=== PATIENT | male | born 1955 | race Caucasian/White ===

== ENCOUNTER 2020-10-18 12:26 | Inpatient (IN) | payer MEDICARE, BC ==
[~2020-10-18] VITALS: Ht 175.3 cm; Wt 65.0 kg
[2020-10-18] MEDS ORDERED: dexamethasone sod phosphate 10mg/ml inj IV STA (14:06)
[2020-10-18 14:33] LABS: BASOPHILS % (AUTO) 0.1 % (0-1); EOSINOPHILS % (AUTO) 0 % (0-6); HEMATOCRIT 48.1 % (42.0-52.0); HEMOGLOBIN 15.9 g/dl (14.0-17.9); LYMPHOCYTES # (AUTO) 0.6 X10'3 (1.1-4.8); LYMPHOCYTES % (AUTO) 4.4 % (21-51); MEAN CORPUSCULAR HEMOGLOBIN 31.3 PG (27.0-31.0); MEAN CORPUSCULAR HGB CONC 33.1 g/dL (33.0-36.5); MEAN CORPUSCULAR VOLUME 94.6 FL (78-98); MONOCYTES # (AUTO) 0.5 X10'3 (0-0.9); MONOCYTES % (AUTO) 3.8 % (2-12); NEUTROPHILS # (AUTO) 12.1 X10'3 (1.8-7.7); NEUTROPHILS % (AUTO) 91.7 % (42-75); PLATELET COUNT 353 X10'3 (140-440); RED BLOOD COUNT 5.08 X10'6 (4.70-6.10); RED CELL DISTRIBUTION WIDTH 13.2 % (11.5-14.5); WHITE BLOOD COUNT 13.2 X10'3 (4.5-11.0)
[2020-10-18 14:50] LABS: D-DIMER 13.88 MG/L FEU (0-0.50)
[2020-10-18 14:51] LABS: ALANINE AMINOTRANSFERASE 77 U/L (12-78); ALBUMIN 2.7 G/DL (3.4-5.0); ALBUMIN/GLOBULIN RATIO 0.5 (1.1-1.5); ALKALINE PHOSPHATASE 97 IU/L (46-116); ANION GAP 12 (8-16); ASPARTATE AMINO TRANSFERASE 23 U/L (10-37); BILIRUBIN,TOTAL 0.6 MG/DL (0.1-1.0); BLOOD UREA NITROGEN 19 MG/DL (7-18); BUN/CREATININE RATIO 24.1 (5.4-32.0); C-REACTIVE PROTEIN 11.24 MG/DL (0.0-0.5); CALCIUM 9.1 MG/DL (8.5-10.1); CHLORIDE 103 MMOL/L (99-107); CREATININE 0.79 MG/DL (0.60-1.10); GLUCOSE 139 MG/DL (70-104); MAGNESIUM 2.3 MG/DL (1.5-2.4); POTASSIUM 4.1 MMOL/L (3.5-5.1); SODIUM 139 MMOL/L (135-145); TOTAL CARBON DIOXIDE 23.7 MMOL/L (24-32); eGFR > 90 ML/MIN
[2020-10-18] MEDS ORDERED: enoxaparin 100mg/ml syringe SUBCUT ONE (15:20)
[2020-10-18] MEDS ORDERED: enoxaparin 40mg/0.4ml syringe SUBCUT ONE (15:25)
[2020-10-18] MEDS ORDERED: enoxaparin 30mg/0.3ml syringe SUBCUT ONE (15:30)
[2020-10-18] MEDS ORDERED: iohexol 350MG/ML 100ml bottle IV ONE (15:45)
[2020-10-18] MEDS ORDERED: REMDESIVIR INJ 200 MG in normal saline 100ml IV soln 60 ML IV ONE (16:50)
[2020-10-18] MEDS ORDERED: acetaminophen 325mg tablet PO PRN ×2 (17:05)
[2020-10-18] MEDS ORDERED: HYDROcodone/acetaminophen 5mg/325mg tablet PO PRN (17:05)
[2020-10-18] MEDS ORDERED: mag hydrox/Alum hydrox/simeth 30ml oral suspension PO PRN (17:05)
[2020-10-18] MEDS ORDERED: ALBUTEROL INHALER 1 PUFF/90 MCG INHALER IH PRN (17:05)
[2020-10-18] MEDS ORDERED: ondansetron/PF 4mg/2ml inj IV PRN (17:05)
[2020-10-18] MEDS ORDERED: HYDROcodone/acetaminophen 10/325mg tab PO PRN (17:05)
[2020-10-18] MEDS ORDERED: magnesium hydroxide 30ml (MOM) UD suspension PO PRN (17:05)
[2020-10-18] MEDS ORDERED: magnesium 2GM in 50ml NS 50 ML IV PRN (17:05)
[2020-10-18] MEDS ORDERED: magnesium 4gm in 100ml NS 100 ML IV PRN (17:05)
[2020-10-18] MEDS ORDERED: potassium Cl 20 mEq SR tablet PO PRN ×2 (17:05)
[2020-10-18] MEDS ORDERED: potassium Cl 40MEQ/1/2NS 520ml 520 ML IV PRN ×2 (17:05)
[2020-10-18] MEDS ORDERED: PRED20TA PO (17:30)
[2020-10-18] MEDS ORDERED: VALA500T41 PO (17:30)
[2020-10-18] MEDS ORDERED: DOXY100T2 PO (17:30)
[2020-10-18] MEDS: normal saline 1000ml 1,000 ML IV SCH (19:10)
[2020-10-18] MEDS: docusate sod 100mg capsule PO SCH (19:11)
[2020-10-18] MEDS: dexamethasone 4mg/ml inj IV SCH (19:11)
[2020-10-18] MEDS: K and/or MAG REPLACEMENT MC SCH (19:11)
[2020-10-18] MEDS: enoxaparin 30mg/0.3ml syringe SQ SCH (19:12)
[2020-10-18 19:51] LABS: CLARITY,URINE CLEAR (Clear); COLOR,URINE YELLOW (Yellow); GLUCOSE, URINE NEGATIVE (Neg); KETONES,URINE NEGATIVE (Neg); LEUKOCYTE ESTERASE ,URINE NEGATIVE (Neg); NITRITES, URINE NEGATIVE (Neg); OCCULT BLOOD,URINE NEGATIVE (Neg); PH,URINE 6.5 (4.8-8.0); PROTEIN,URINE TRACE mg/dl (Neg); UROBILINOGEN,URINE 0.2 E.U/dL (0.2-1.0)
[2020-10-18 19:52] LABS: UA COLLECTION TYPE URINAL
[2020-10-18 20:01] LABS: BACTERIA,URINE NONE SEEN /HPF (Neg); MUCUS STRANDS FEW /LPF (Neg); RBC,URINE 0-2 /HPF (0-2); SQUAMOUS EPITHELIAL CELL,UR FEW /LPF (FEW); WBC,URINE 0-4 /HPF (0-4)
[2020-10-18 20:02] LABS: CAL OXALATE CRYSTALS 1+ /HPF (NEGATIVE)
--- NOTE | 2020-10-18 20:13 | NUR ---
patient recieved late dinner tray
--- NOTE | 2020-10-19 03:15 | NUR ---
300ml yellow urine output
[2020-10-19] MEDS: normal saline 1000ml 1,000 ML IV SCH ×3 (03:30→17:28)
[2020-10-19] MEDS ORDERED: NO HOME MEDS PO (05:32)
[2020-10-19 07:40] VITALS: BP 158/94
[2020-10-19] MEDS: docusate sod 100mg capsule PO SCH ×2 (08:00→20:46)
[2020-10-19] MEDS: K and/or MAG REPLACEMENT MC SCH ×2 (08:00→20:00)
[2020-10-19] MEDS: dexamethasone 4mg/ml inj IV SCH ×2 (09:38→20:45)
[2020-10-19] MEDS: enoxaparin 30mg/0.3ml syringe SQ SCH ×2 (09:45→20:46)
[2020-10-19 10:00] VITALS: BP 158/93
[2020-10-19] MEDS: REMDESIVIR INJ 100 MG in normal saline 100ml IV soln 80 ML IV SCH (10:17)
[2020-10-19 11:07] LABS: BASOPHILS # (AUTO) 0.1 X10'3 (0-0.2); BASOPHILS % (AUTO) 0.5 % (0-1); EOSINOPHILS % (AUTO) 0 % (0-6); HEMATOCRIT 44.5 % (42.0-52.0); HEMOGLOBIN 14.8 g/dl (14.0-17.9); LYMPHOCYTES # (AUTO) 0.8 X10'3 (1.1-4.8); LYMPHOCYTES % (AUTO) 5.3 % (21-51); MEAN CORPUSCULAR HEMOGLOBIN 31.4 PG (27.0-31.0); MEAN CORPUSCULAR HGB CONC 33.2 g/dL (33.0-36.5); MEAN CORPUSCULAR VOLUME 94.4 FL (78-98); MEAN PLATELET VOLUME 7.9 FL (7.4-10.4); MONOCYTES # (AUTO) 0.7 X10'3 (0-0.9); MONOCYTES % (AUTO) 4.3 % (2-12); NEUTROPHILS # (AUTO) 13.8 X10'3 (1.8-7.7); NEUTROPHILS % (AUTO) 89.9 % (42-75); PLATELET COUNT 330 X10'3 (140-440); RED BLOOD COUNT 4.72 X10'6 (4.70-6.10); RED CELL DISTRIBUTION WIDTH 13.3 % (11.5-14.5); WHITE BLOOD COUNT 15.3 X10'3 (4.5-11.0)
[2020-10-19 11:15] LABS: ALANINE AMINOTRANSFERASE 52 U/L (12-78); ALBUMIN 2.2 G/DL (3.4-5.0); ALBUMIN/GLOBULIN RATIO 0.4 (1.1-1.5); ALKALINE PHOSPHATASE 84 IU/L (46-116); ANION GAP 11 (8-16); ASPARTATE AMINO TRANSFERASE 9 U/L (10-37); BILIRUBIN,TOTAL 0.4 MG/DL (0.1-1.0); BLOOD UREA NITROGEN 19 MG/DL (7-18); BUN/CREATININE RATIO 22.4 (5.4-32.0); C-REACTIVE PROTEIN 9.11 MG/DL (0.0-0.5); CALCIUM 8.8 MG/DL (8.5-10.1); CHLORIDE 106 MMOL/L (99-107); CREATININE 0.85 MG/DL (0.60-1.10); GLUCOSE 136 MG/DL (70-104); MAGNESIUM 2.2 MG/DL (1.5-2.4); POTASSIUM 3.8 MMOL/L (3.5-5.1); SODIUM 141 MMOL/L (135-145); TOTAL CARBON DIOXIDE 23.7 MMOL/L (24-32); TOTAL PROTEIN 7.1 G/DL (6.4-8.2); eGFR 90 ML/MIN
[2020-10-19 11:16] LABS: D-DIMER 5.44 MG/L FEU (0-0.50)
--- NOTE | 2020-10-19 18:02 | NUR ---
PAGER ID: [phone] MESSAGE: MORRIS CONKLIN 7A Christine HAILE PATIENT HAS HAD HIGHER BLOOD PRESSURE THE LAST TWO VITALS AT 161/106 FOR THE LAST SET. PATIENT STATES NO HISTORY OF HTN
[2020-10-19] MEDS ORDERED: hydrALAZINE 20mg/ml inj. IV PRN (18:05)
--- NOTE | 2020-10-19 18:30 | NUR ---
Patient in room COVID 07. I have received report from MORRIS and had the opportunity to ask questions and assume patient care.
[2020-10-19 19:00] VITALS: BP 165/98
[2020-10-19 23:00] VITALS: BP 129/81
[2020-10-20] MEDS: normal saline 1000ml 1,000 ML IV SCH ×2 (02:12→13:58)
[2020-10-20 06:29] VITALS: BP 143/95
--- NOTE | 2020-10-20 06:41 | NUR ---
Problems reprioritized. Patient report given, questions answered & plan of care reviewed with MORRIS.
[2020-10-20] MEDS: REMDESIVIR INJ 100 MG in normal saline 100ml IV soln 80 ML IV SCH (07:56)
[2020-10-20] MEDS: docusate sod 100mg capsule PO SCH ×2 (07:56→20:38)
[2020-10-20] MEDS: enoxaparin 30mg/0.3ml syringe SQ SCH (07:56)
[2020-10-20] MEDS: dexamethasone 4mg/ml inj IV SCH ×2 (07:57→20:38)
[2020-10-20] MEDS: K and/or MAG REPLACEMENT MC SCH ×2 (08:00→20:00)
[2020-10-20 08:05] LABS: D-DIMER 4.01 MG/L FEU (0-0.50)
[2020-10-20 08:12] LABS: ALANINE AMINOTRANSFERASE 39 U/L (12-78); ALBUMIN 2.1 G/DL (3.4-5.0); ALBUMIN/GLOBULIN RATIO 0.5 (1.1-1.5); ALKALINE PHOSPHATASE 83 IU/L (46-116); ANION GAP 10 (8-16); ASPARTATE AMINO TRANSFERASE 12 U/L (10-37); BILIRUBIN,TOTAL 0.4 MG/DL (0.1-1.0); BLOOD UREA NITROGEN 19 MG/DL (7-18); C-REACTIVE PROTEIN 3.71 MG/DL (0.0-0.5); CALCIUM 8.3 MG/DL (8.5-10.1); CHLORIDE 106 MMOL/L (99-107); CREATININE 0.73 MG/DL (0.60-1.10); GLUCOSE 118 MG/DL (70-104); MAGNESIUM 2.2 MG/DL (1.5-2.4); POTASSIUM 4.3 MMOL/L (3.5-5.1); SODIUM 140 MMOL/L (135-145); TOTAL PROTEIN 6.6 G/DL (6.4-8.2); eGFR > 90 ML/MIN
[2020-10-20 08:18] LABS: BASOPHILS % (AUTO) 0.1 % (0-1); EOSINOPHILS % (AUTO) 0 % (0-6); HEMATOCRIT 43.9 % (42.0-52.0); HEMOGLOBIN 14.4 g/dl (14.0-17.9); LYMPHOCYTES # (AUTO) 0.8 X10'3 (1.1-4.8); LYMPHOCYTES % (AUTO) 5.4 % (21-51); MEAN CORPUSCULAR HGB CONC 32.8 g/dL (33.0-36.5); MEAN CORPUSCULAR VOLUME 94.6 FL (78-98); MEAN PLATELET VOLUME 8.1 FL (7.4-10.4); MONOCYTES # (AUTO) 0.5 X10'3 (0-0.9); MONOCYTES % (AUTO) 3.3 % (2-12); NEUTROPHILS # (AUTO) 12.9 X10'3 (1.8-7.7); NEUTROPHILS % (AUTO) 91.2 % (42-75); PLATELET COUNT 353 X10'3 (140-440); RED BLOOD COUNT 4.65 X10'6 (4.70-6.10); RED CELL DISTRIBUTION WIDTH 13.4 % (11.5-14.5); WHITE BLOOD COUNT 14.1 X10'3 (4.5-11.0)
[2020-10-20 12:44] VITALS: BP 158/93
[2020-10-20 15:00] VITALS: BP 128/83
--- NOTE | 2020-10-20 18:33 | NUR ---
Problems reprioritized. Patient report given, questions answered & plan of care reviewed with Madelin LUGO.
--- NOTE | 2020-10-20 18:35 | NUR ---
Patient in room COVID 07. I have received report from PARISH Hernandez and had the opportunity to ask questions and assume patient care. Patient is sitting up in bed, just finished dinner.
[2020-10-20] MEDS: enoxaparin 40mg/0.4ml syringe SQ SCH (20:38)
[2020-10-20 22:00] VITALS: BP 130/80
[2020-10-21 02:00] VITALS: BP 93/54
[2020-10-21 06:00] VITALS: BP 118/72
--- NOTE | 2020-10-21 06:34 | NUR ---
Problems reprioritized. Patient report given, questions answered & plan of care reviewed with PARISH Campoverde.
--- NOTE | 2020-10-21 06:42 | NUR ---
Patient in room COVID 07. I have received report from PARISH Yusuf and had the opportunity to ask questions and assume patient care.
[2020-10-21] MEDS: docusate sod 100mg capsule PO SCH ×2 (07:40→20:39)
[2020-10-21] MEDS: dexamethasone 4mg/ml inj IV SCH ×2 (07:41→20:39)
[2020-10-21] MEDS: enoxaparin 40mg/0.4ml syringe SQ SCH ×2 (07:41→20:40)
[2020-10-21] MEDS: REMDESIVIR INJ 100 MG in normal saline 100ml IV soln 80 ML IV SCH (07:41)
[2020-10-21] MEDS: K and/or MAG REPLACEMENT MC SCH ×2 (08:00→20:00)
[2020-10-21 09:44] LABS: BASOPHILS % (AUTO) 0.1 % (0-1); EOSINOPHILS % (AUTO) 0 % (0-6); HEMATOCRIT 46.9 % (42.0-52.0); HEMOGLOBIN 15.6 g/dl (14.0-17.9); LYMPHOCYTES # (AUTO) 0.9 X10'3 (1.1-4.8); LYMPHOCYTES % (AUTO) 5.5 % (21-51); MEAN CORPUSCULAR HEMOGLOBIN 31.8 PG (27.0-31.0); MEAN CORPUSCULAR HGB CONC 33.3 g/dL (33.0-36.5); MEAN CORPUSCULAR VOLUME 95.3 FL (78-98); MEAN PLATELET VOLUME 8.3 FL (7.4-10.4); MONOCYTES # (AUTO) 0.6 X10'3 (0-0.9); MONOCYTES % (AUTO) 3.9 % (2-12); NEUTROPHILS # (AUTO) 14.5 X10'3 (1.8-7.7); NEUTROPHILS % (AUTO) 90.5 % (42-75); PLATELET COUNT 400 X10'3 (140-440); RED BLOOD COUNT 4.92 X10'6 (4.70-6.10); RED CELL DISTRIBUTION WIDTH 13.2 % (11.5-14.5)
[2020-10-21 09:51] LABS: D-DIMER 3.14 MG/L FEU (0-0.50)
[2020-10-21 10:00] VITALS: BP 99/61
[2020-10-21 10:07] LABS: ALANINE AMINOTRANSFERASE 43 U/L (12-78); ALBUMIN 2.3 G/DL (3.4-5.0); ALBUMIN/GLOBULIN RATIO 0.5 (1.1-1.5); ALKALINE PHOSPHATASE 87 IU/L (46-116); ANION GAP 11 (8-16); ASPARTATE AMINO TRANSFERASE 21 U/L (10-37); BILIRUBIN,TOTAL 0.5 MG/DL (0.1-1.0); BLOOD UREA NITROGEN 17 MG/DL (7-18); BUN/CREATININE RATIO 21.5 (5.4-32.0); C-REACTIVE PROTEIN 2.26 MG/DL (0.0-0.5); CALCIUM 8.4 MG/DL (8.5-10.1); CHLORIDE 102 MMOL/L (99-107); CREATININE 0.79 MG/DL (0.60-1.10); GLUCOSE 95 MG/DL (70-104); MAGNESIUM 2.2 MG/DL (1.5-2.4); SODIUM 137 MMOL/L (135-145); TOTAL CARBON DIOXIDE 24.5 MMOL/L (24-32); TOTAL PROTEIN 7.4 G/DL (6.4-8.2); eGFR > 90 ML/MIN
[2020-10-21 14:00] VITALS: BP 143/87
[2020-10-21] MEDS ORDERED: pneumococcal 23-VAL P-sac vacc 25 mcg/0.5ml vial IMVAC ONE (14:55)
--- NOTE | 2020-10-21 17:01 | NUR ---
Pt transported to room 4022B, via wheelchair, with all belongings.
[2020-10-21 18:00] VITALS: BP 144/77
--- NOTE | 2020-10-21 18:23 | NUR ---
Problems reprioritized. Patient report given, questions answered & plan of care reviewed with PARISH Anthony.
[2020-10-21 22:00] VITALS: BP 133/83
[2020-10-22 02:00] VITALS: BP 128/82
--- NOTE | 2020-10-22 06:24 | NUR ---
Problems reprioritized. Patient report given, questions answered & plan of care reviewed with PARISH WALKER.
[2020-10-22 06:29] VITALS: BP 126/81
--- NOTE | 2020-10-22 06:30 | NUR ---
Patient in room ORTHO 4022. I have received report from Gabrielle LUGO and had the opportunity to ask questions and assume patient care.
[2020-10-22 07:42] LABS: BASOPHILS # (AUTO) 0.1 X10'3 (0-0.2); BASOPHILS % (AUTO) 0.5 % (0-1); EOSINOPHILS % (AUTO) 0.1 % (0-6); HEMOGLOBIN 16.4 g/dl (14.0-17.9); LYMPHOCYTES # (AUTO) 0.9 X10'3 (1.1-4.8); LYMPHOCYTES % (AUTO) 5.4 % (21-51); MEAN CORPUSCULAR HEMOGLOBIN 31.7 PG (27.0-31.0); MEAN CORPUSCULAR HGB CONC 33.5 g/dL (33.0-36.5); MEAN CORPUSCULAR VOLUME 94.9 FL (78-98); MEAN PLATELET VOLUME 8.1 FL (7.4-10.4); MONOCYTES # (AUTO) 0.7 X10'3 (0-0.9); MONOCYTES % (AUTO) 4.1 % (2-12); NEUTROPHILS # (AUTO) 14.3 X10'3 (1.8-7.7); NEUTROPHILS % (AUTO) 89.9 % (42-75); PLATELET COUNT 399 X10'3 (140-440); RED BLOOD COUNT 5.16 X10'6 (4.70-6.10); RED CELL DISTRIBUTION WIDTH 12.9 % (11.5-14.5); WHITE BLOOD COUNT 15.9 X10'3 (4.5-11.0)
[2020-10-22] MEDS: docusate sod 100mg capsule PO SCH ×2 (08:00→20:42)
[2020-10-22] MEDS: K and/or MAG REPLACEMENT MC SCH ×2 (08:00→20:00)
[2020-10-22 08:10] LABS: ALANINE AMINOTRANSFERASE 53 U/L (12-78); ALBUMIN 2.3 G/DL (3.4-5.0); ALBUMIN/GLOBULIN RATIO 0.5 (1.1-1.5); ALKALINE PHOSPHATASE 98 IU/L (46-116); ANION GAP 9 (8-16); ASPARTATE AMINO TRANSFERASE 20 U/L (10-37); BILIRUBIN,TOTAL 0.5 MG/DL (0.1-1.0); BLOOD UREA NITROGEN 16 MG/DL (7-18); BUN/CREATININE RATIO 21.6 (5.4-32.0); C-REACTIVE PROTEIN 2.83 MG/DL (0.0-0.5); CALCIUM 8.4 MG/DL (8.5-10.1); CHLORIDE 101 MMOL/L (99-107); CREATININE 0.74 MG/DL (0.60-1.10); GLUCOSE 116 MG/DL (70-104); MAGNESIUM 2.3 MG/DL (1.5-2.4); POTASSIUM 4.5 MMOL/L (3.5-5.1); SODIUM 135 MMOL/L (135-145); TOTAL CARBON DIOXIDE 24.7 MMOL/L (24-32); TOTAL PROTEIN 7.1 G/DL (6.4-8.2); eGFR > 90 ML/MIN
[2020-10-22 08:35] LABS: D-DIMER 2.33 MG/L FEU (0-0.50)
[2020-10-22] MEDS: REMDESIVIR INJ 100 MG in normal saline 100ml IV soln 80 ML IV SCH (08:40)
[2020-10-22] MEDS: dexamethasone 4mg/ml inj IV SCH ×2 (08:40→20:43)
[2020-10-22] MEDS: enoxaparin 40mg/0.4ml syringe SQ SCH ×2 (08:41→20:40)
--- NOTE | 2020-10-22 09:02 | NUR ---
Initial: Pt admit for acute respiratory failure secondary COVID-19 PNA. Pt on a regular diet documented with mostly 100% PO intake throughout LOS meeting estimated nutrient needs. LBM 10/21. No documented edema or wounds. No nutrition diagnosis at this time. Will continue to follow. Recommendations: 1) Continue regular diet 2) Monitor need for additional protein for satiety 3) Routine bowel care 4) Scaled weight this admit; weekly scaled weights thereafter Addendum: 10/22/20 at [address] Amended: Links added.
--- NOTE | 2020-10-22 09:49 | NUR ---
Continuous pulse ox applied at bedside. Patient is at 15liters per minute on a high flow nasal cannula and needs an extra 15 on a non rebreather when he exerts himself.
[2020-10-22 11:35] VITALS: BP 109/71
[2020-10-22 15:49] VITALS: BP 140/83
--- NOTE | 2020-10-22 18:29 | NUR ---
Problems reprioritized. Patient report given, questions answered & plan of care reviewed with Christiano LUGO and Sharmaine LUGO.
[2020-10-22 18:31] VITALS: BP 135/89
[2020-10-22 22:00] VITALS: BP 158/90
--- NOTE | 2020-10-22 22:00 | NUR ---
pt proning well. unable to titrate oxygen down at this time, productive cough. will attempt to wean tomorrow.
[2020-10-23 01:25] VITALS: BP 126/80
--- NOTE | 2020-10-23 06:12 | NUR ---
Problems reprioritized. Patient report given, questions answered & plan of care reviewed with PARISH Zarate.
--- NOTE | 2020-10-23 06:18 | NUR ---
Patient in room ORTHO 4022. I have received report from Christiano LUGO and Sharmaine LUGO and had the opportunity to ask questions and assume patient care.
[2020-10-23 06:21] VITALS: BP 130/83
[2020-10-23] MEDS: docusate sod 100mg capsule PO SCH ×2 (08:00→20:54)
[2020-10-23] MEDS: K and/or MAG REPLACEMENT MC SCH ×2 (08:00→20:00)
[2020-10-23 08:28] LABS: BASOPHILS % (AUTO) 0.3 % (0-1); EOSINOPHILS % (AUTO) 0 % (0-6); HEMATOCRIT 51.9 % (42.0-52.0); HEMOGLOBIN 17.1 g/dl (14.0-17.9); LYMPHOCYTES # (AUTO) 0.7 X10'3 (1.1-4.8); LYMPHOCYTES % (AUTO) 4.6 % (21-51); MEAN CORPUSCULAR HEMOGLOBIN 31.6 PG (27.0-31.0); MEAN CORPUSCULAR HGB CONC 32.9 g/dL (33.0-36.5); MEAN CORPUSCULAR VOLUME 96.1 FL (78-98); MEAN PLATELET VOLUME 8.1 FL (7.4-10.4); MONOCYTES # (AUTO) 0.8 X10'3 (0-0.9); MONOCYTES % (AUTO) 4.8 % (2-12); NEUTROPHILS # (AUTO) 14.4 X10'3 (1.8-7.7); NEUTROPHILS % (AUTO) 90.3 % (42-75); PLATELET COUNT 425 X10'3 (140-440); RED CELL DISTRIBUTION WIDTH 13.4 % (11.5-14.5); WHITE BLOOD COUNT 15.9 X10'3 (4.5-11.0)
[2020-10-23] MEDS: enoxaparin 40mg/0.4ml syringe SQ SCH ×2 (08:35→20:54)
[2020-10-23] MEDS: dexamethasone 4mg/ml inj IV SCH ×2 (08:35→20:54)
[2020-10-23 08:50] LABS: D-DIMER 2.12 MG/L FEU (0-0.50)
[2020-10-23 08:55] LABS: ALANINE AMINOTRANSFERASE 48 U/L (12-78); ALBUMIN 2.3 G/DL (3.4-5.0); ALBUMIN/GLOBULIN RATIO 0.5 (1.1-1.5); ALKALINE PHOSPHATASE 87 IU/L (46-116); ANION GAP 13 (8-16); ASPARTATE AMINO TRANSFERASE 14 U/L (10-37); BILIRUBIN,TOTAL 0.4 MG/DL (0.1-1.0); BLOOD UREA NITROGEN 21 MG/DL (7-18); BUN/CREATININE RATIO 26.9 (5.4-32.0); C-REACTIVE PROTEIN 1.77 MG/DL (0.0-0.5); CALCIUM 8.7 MG/DL (8.5-10.1); CHLORIDE 101 MMOL/L (99-107); CREATININE 0.78 MG/DL (0.60-1.10); GLUCOSE 136 MG/DL (70-104); MAGNESIUM 2.3 MG/DL (1.5-2.4); POTASSIUM 4.6 MMOL/L (3.5-5.1); SODIUM 137 MMOL/L (135-145); TOTAL CARBON DIOXIDE 23.4 MMOL/L (24-32); TOTAL PROTEIN 7.1 G/DL (6.4-8.2); eGFR > 90 ML/MIN
[2020-10-23 09:20] LABS: PLATELET ESTIMATE NORMAL; TOTAL CELLS COUNTED 100
[2020-10-23 12:01] VITALS: BP 137/94
[2020-10-23 14:34] VITALS: BP 134/92
[2020-10-23 18:00] VITALS: BP 120/67
--- NOTE | 2020-10-23 18:36 | NUR ---
Problems reprioritized. Patient report given, questions answered & plan of care reviewed with Vernell LUGO.
--- NOTE | 2020-10-23 18:41 | NUR ---
Patient in room ORTHO 4022. I have received report from PARISH Zarate and had the opportunity to ask questions and assume patient care.
[2020-10-23 22:00] VITALS: BP 133/78
[2020-10-24 02:00] VITALS: BP 121/85
--- NOTE | 2020-10-24 06:30 | NUR ---
Problems reprioritized. Patient report given, questions answered & plan of care reviewed with PARIHS Sommers.
[2020-10-24 06:53] VITALS: BP 135/81
[2020-10-24] MEDS: K and/or MAG REPLACEMENT MC SCH ×2 (08:00→20:00)
[2020-10-24] MEDS: dexamethasone 4mg/ml inj IV SCH ×2 (08:32→20:15)
[2020-10-24] MEDS: enoxaparin 40mg/0.4ml syringe SQ SCH ×2 (08:34→20:16)
[2020-10-24] MEDS: docusate sod 100mg capsule PO SCH ×2 (08:35→20:15)
[2020-10-24 10:00] VITALS: BP 137/84
[2020-10-24 13:46] LABS: ABG BASE EXCESS -3.3 mmol/L (-2.0-2.0); ABG HCO3 18.5 mmol/L (22.0-26.0); ABG OXYGEN SATURATION 96.9 % (94-97); ABG PCO2 (T) 26.8 mmHg (35.0-48.0); ABG PO2 (T) 92.9 mmHg (75.0-100.0); ALLEN'S TEST POSITIVE; FCOHb 0.3 % (0.0-3.9); FLOW 15 L/min; FMetHb 0.4 % (0.0-1.5); FO2Hb 96.2 % (94-97); PATIENT TEMPERATURE 37.1; TOTAL HEMOGLOBIN 18.2 G/dl (14.0-18.0)
[2020-10-24 14:00] VITALS: BP 129/82
--- NOTE | 2020-10-24 14:09 | NUR ---
Dr Bajwa notified about ABG critical of tHB. She says she is not worried about that but wants to try to have RT wean his 02 to 10L. RT notified. Tried to wean pt this AM to 12L and he did not tolerate it but RT says they will try a slow wean.
[2020-10-24 18:00] VITALS: BP 138/78
--- NOTE | 2020-10-24 18:30 | NUR ---
Report given to RN. All questions answered. RT says they tried to wean further but were unable without pt dropping saturation. Pt doing well at this time even though requiring 14-15L high flow02
--- NOTE | 2020-10-24 18:30 | NUR ---
Patient in room ORTHO 4022. I have received report from Tootie LUGO and had the opportunity to ask questions and assume patient care.
[2020-10-24 22:00] VITALS: BP 135/92
[2020-10-25 02:00] VITALS: BP 134/85
[2020-10-25 06:00] VITALS: BP 142/86
--- NOTE | 2020-10-25 06:42 | NUR ---
Problems reprioritized. Patient report given, questions answered & plan of care reviewed with Juanita LUGO.
[2020-10-25] MEDS: K and/or MAG REPLACEMENT MC SCH ×2 (08:00→20:00)
[2020-10-25] MEDS: dexamethasone 4mg/ml inj IV SCH ×2 (08:24→21:02)
[2020-10-25] MEDS: docusate sod 100mg capsule PO SCH ×2 (08:24→21:03)
[2020-10-25] MEDS: enoxaparin 40mg/0.4ml syringe SQ SCH ×2 (08:25→21:04)
[2020-10-25 10:00] VITALS: BP 146/90
--- NOTE | 2020-10-25 12:33 | NUR ---
PAGER ID: [phone] MESSAGE: Maximiliano Welsh [id number] FYI only. Attempted to ambulate pt but was unable. Just after sitting up in bed pt. desaturates to low 80s on 16LPM via salter. SOB and tachycardic in 120s at rest sitting. Juanita [phone]
[2020-10-25 18:37] VITALS: BP 133/89
[2020-10-25 22:00] VITALS: BP 134/85
[2020-10-26 02:53] VITALS: BP 120/76
[2020-10-26 06:00] VITALS: BP 120/73
[2020-10-26 06:28] LABS: BASOPHILS # (AUTO) 0.1 X10'3 (0-0.2); BASOPHILS % (AUTO) 0.4 % (0-1); EOSINOPHILS % (AUTO) 0 % (0-6); HEMATOCRIT 49.2 % (42.0-52.0); HEMOGLOBIN 16.2 g/dl (14.0-17.9); LYMPHOCYTES # (AUTO) 0.7 X10'3 (1.1-4.8); LYMPHOCYTES % (AUTO) 4.1 % (21-51); MEAN CORPUSCULAR HEMOGLOBIN 31.6 PG (27.0-31.0); MEAN CORPUSCULAR HGB CONC 32.9 g/dL (33.0-36.5); MEAN PLATELET VOLUME 8.1 FL (7.4-10.4); MONOCYTES # (AUTO) 1.1 X10'3 (0-0.9); MONOCYTES % (AUTO) 7.1 % (2-12); NEUTROPHILS # (AUTO) 14.2 X10'3 (1.8-7.7); NEUTROPHILS % (AUTO) 88.4 % (42-75); PLATELET COUNT 353 X10'3 (140-440); RED BLOOD COUNT 5.13 X10'6 (4.70-6.10); RED CELL DISTRIBUTION WIDTH 13.4 % (11.5-14.5); WHITE BLOOD COUNT 16.1 X10'3 (4.5-11.0)
[2020-10-26 06:36] LABS: D-DIMER 1.14 MG/L FEU (0-0.50)
[2020-10-26 06:42] LABS: ALBUMIN 2.2 G/DL (3.4-5.0); ANION GAP 8 (8-16); BLOOD UREA NITROGEN 21 MG/DL (7-18); BUN/CREATININE RATIO 24.7 (5.4-32.0); C-REACTIVE PROTEIN 0.12 MG/DL (0.0-0.5); CALCIUM 8.6 MG/DL (8.5-10.1); CHLORIDE 102 MMOL/L (99-107); CREATININE 0.85 MG/DL (0.60-1.10); GLUCOSE 177 MG/DL (70-104); POTASSIUM 4.1 MMOL/L (3.5-5.1); SODIUM 136 MMOL/L (135-145); TOTAL CARBON DIOXIDE 26.5 MMOL/L (24-32); eGFR 90 ML/MIN
--- NOTE | 2020-10-26 06:49 | NUR ---
Gave report to Delilah LUGO.
--- NOTE | 2020-10-26 06:50 | NUR ---
Patient in room ORTHO 4022B. I have received report from PARISH Grant and had the opportunity to ask questions and assume patient care.
[2020-10-26] MEDS: dexamethasone 4mg/ml inj IV SCH ×2 (07:28→20:29)
[2020-10-26] MEDS: docusate sod 100mg capsule PO SCH ×2 (07:28→20:35)
[2020-10-26] MEDS: enoxaparin 40mg/0.4ml syringe SQ SCH ×2 (07:28→20:35)
[2020-10-26] MEDS: K and/or MAG REPLACEMENT MC SCH ×2 (08:00→20:00)
[2020-10-26 10:00] VITALS: BP 125/77
[2020-10-26 14:00] VITALS: BP 124/77
--- NOTE | 2020-10-26 18:16 | NUR ---
Problems reprioritized. Patient report given, questions answered & plan of care reviewed with PARISH SHAVER.
[2020-10-26 18:30] VITALS: BP 124/80
[2020-10-26 22:00] VITALS: BP 139/77
[2020-10-27 02:00] VITALS: BP 115/77
[2020-10-27 06:00] VITALS: BP 131/77
--- NOTE | 2020-10-27 06:09 | NUR ---
Patient in room ORTHO 4022B. I have received report from PARISH SHAVER and had the opportunity to ask questions and assume patient care.
--- NOTE | 2020-10-27 06:30 | NUR ---
Problems reprioritized. Patient report given, questions answered & plan of care reviewed with PARISH OKEEFE.
[2020-10-27] MEDS: enoxaparin 40mg/0.4ml syringe SQ SCH ×2 (07:12→19:34)
[2020-10-27] MEDS: docusate sod 100mg capsule PO SCH ×2 (07:12→19:31)
[2020-10-27] MEDS: dexamethasone 4mg/ml inj IV SCH ×2 (07:12→19:31)
[2020-10-27 07:28] LABS: BASOPHILS # (AUTO) 0.1 X10'3 (0-0.2); BASOPHILS % (AUTO) 0.6 % (0-1); EOSINOPHILS % (AUTO) 0.1 % (0-6); HEMATOCRIT 47.2 % (42.0-52.0); HEMOGLOBIN 15.7 g/dl (14.0-17.9); LYMPHOCYTES % (AUTO) 6.8 % (21-51); MEAN CORPUSCULAR HEMOGLOBIN 31.7 PG (27.0-31.0); MEAN CORPUSCULAR HGB CONC 33.3 g/dL (33.0-36.5); MEAN CORPUSCULAR VOLUME 95.3 FL (78-98); MEAN PLATELET VOLUME 8.1 FL (7.4-10.4); MONOCYTES # (AUTO) 1.2 X10'3 (0-0.9); MONOCYTES % (AUTO) 8.2 % (2-12); NEUTROPHILS # (AUTO) 12.5 X10'3 (1.8-7.7); NEUTROPHILS % (AUTO) 84.3 % (42-75); PLATELET COUNT 305 X10'3 (140-440); RED BLOOD COUNT 4.95 X10'6 (4.70-6.10); WHITE BLOOD COUNT 14.8 X10'3 (4.5-11.0)
[2020-10-27 07:39] LABS: D-DIMER 0.96 MG/L FEU (0-0.50)
[2020-10-27 08:00] LABS: ALANINE AMINOTRANSFERASE 31 U/L (12-78); ALBUMIN/GLOBULIN RATIO 0.5 (1.1-1.5); ALKALINE PHOSPHATASE 79 IU/L (46-116); ANION GAP 9 (8-16); ASPARTATE AMINO TRANSFERASE 12 U/L (10-37); BILIRUBIN,TOTAL 0.4 MG/DL (0.1-1.0); BLOOD UREA NITROGEN 20 MG/DL (7-18); C-REACTIVE PROTEIN 0.06 MG/DL (0.0-0.5); CALCIUM 8.2 MG/DL (8.5-10.1); CHLORIDE 102 MMOL/L (99-107); CREATININE 0.74 MG/DL (0.60-1.10); GLUCOSE 122 MG/DL (70-104); POTASSIUM 4.5 MMOL/L (3.5-5.1); SODIUM 138 MMOL/L (135-145); TOTAL CARBON DIOXIDE 26.7 MMOL/L (24-32); TOTAL PROTEIN 5.9 G/DL (6.4-8.2); eGFR > 90 ML/MIN
[2020-10-27] MEDS: K and/or MAG REPLACEMENT MC SCH ×2 (08:00→20:00)
[2020-10-27 10:00] VITALS: BP 130/78
--- NOTE | 2020-10-27 13:54 | NUR ---
Reassessment: Pt PO 75-100% avg regular diet meeting needs. LBM 10/26. No nutrition intervention at this time. Will continue to monitor. Recommendations: 1) Continue regular diet 2) Routine bowel care 3) Scaled weight this admit; weekly scaled weights thereafter Addendum: 10/27/20 at [address] Amended: Links added.
[2020-10-27 14:00] VITALS: BP 130/75
[2020-10-27 18:00] VITALS: BP 137/92
--- NOTE | 2020-10-27 18:27 | NUR ---
Problems reprioritized. Patient report given, questions answered & plan of care reviewed with PARISH SHAVER.
[2020-10-27 22:00] VITALS: BP 129/70
[2020-10-28 06:00] VITALS: BP 118/68
--- NOTE | 2020-10-28 06:19 | NUR ---
Patient in room ORTHO 4022B. I have received report from PARISH SHAVER and had the opportunity to ask questions and assume patient care.
--- NOTE | 2020-10-28 06:44 | NUR ---
Problems reprioritized. Patient report given, questions answered & plan of care reviewed with PARISH OKEEFE.
[2020-10-28] MEDS: dexamethasone 4mg/ml inj IV SCH (07:19)
[2020-10-28] MEDS: docusate sod 100mg capsule PO SCH ×2 (07:19→20:39)
[2020-10-28] MEDS: enoxaparin 40mg/0.4ml syringe SQ SCH ×2 (07:19→20:39)
[2020-10-28] MEDS: K and/or MAG REPLACEMENT MC SCH ×2 (08:00→20:00)
[2020-10-28 08:30] LABS: BASOPHILS % (AUTO) 0.1 % (0-1); EOSINOPHILS % (AUTO) 0.3 % (0-6); HEMATOCRIT 47.1 % (42.0-52.0); HEMOGLOBIN 15.8 g/dl (14.0-17.9); LYMPHOCYTES # (AUTO) 1.2 X10'3 (1.1-4.8); LYMPHOCYTES % (AUTO) 8.7 % (21-51); MEAN CORPUSCULAR HEMOGLOBIN 31.4 PG (27.0-31.0); MEAN CORPUSCULAR HGB CONC 33.6 g/dL (33.0-36.5); MEAN CORPUSCULAR VOLUME 93.6 FL (78-98); MEAN PLATELET VOLUME 8.1 FL (7.4-10.4); MONOCYTES % (AUTO) 7.3 % (2-12); NEUTROPHILS # (AUTO) 11.5 X10'3 (1.8-7.7); NEUTROPHILS % (AUTO) 83.6 % (42-75); PLATELET COUNT 283 X10'3 (140-440); RED BLOOD COUNT 5.03 X10'6 (4.70-6.10); RED CELL DISTRIBUTION WIDTH 13.3 % (11.5-14.5); WHITE BLOOD COUNT 13.8 X10'3 (4.5-11.0)
[2020-10-28 08:36] LABS: D-DIMER 0.83 MG/L FEU (0-0.50)
[2020-10-28 08:42] LABS: ALANINE AMINOTRANSFERASE 25 U/L (12-78); ALBUMIN 2.2 G/DL (3.4-5.0); ALBUMIN/GLOBULIN RATIO 0.6 (1.1-1.5); ALKALINE PHOSPHATASE 84 IU/L (46-116); ANION GAP 4 (8-16); ASPARTATE AMINO TRANSFERASE 14 U/L (10-37); BILIRUBIN,TOTAL 0.3 MG/DL (0.1-1.0); BLOOD UREA NITROGEN 19 MG/DL (7-18); BUN/CREATININE RATIO 22.9 (5.4-32.0); C-REACTIVE PROTEIN 0.09 MG/DL (0.0-0.5); CALCIUM 8.3 MG/DL (8.5-10.1); CHLORIDE 101 MMOL/L (99-107); CREATININE 0.83 MG/DL (0.60-1.10); GLUCOSE 93 MG/DL (70-104); POTASSIUM 3.8 MMOL/L (3.5-5.1); SODIUM 137 MMOL/L (135-145); TOTAL CARBON DIOXIDE 32.1 MMOL/L (24-32); eGFR > 90 ML/MIN
[2020-10-28 10:00] VITALS: BP 99/78
[2020-10-28 14:00] VITALS: BP 120/88
--- NOTE | 2020-10-28 18:07 | NUR ---
Problems reprioritized. Patient report given, questions answered & plan of care reviewed with PARISH SHAVER.
[2020-10-28 22:00] VITALS: BP_SYST 120; BP_SYST 138; BP_DIAS 86; BP_DIAS 88
[2020-10-29 02:00] VITALS: BP 109/78
--- NOTE | 2020-10-29 06:24 | NUR ---
Problems reprioritized. Patient report given, questions answered & plan of care reviewed with PARISH WALKER.
--- NOTE | 2020-10-29 06:26 | NUR ---
Patient in room ORTHO 4022. I have received report from Gabrielle LUGO and had the opportunity to ask questions and assume patient care.
[2020-10-29 06:54] VITALS: BP 109/67
[2020-10-29] MEDS: K and/or MAG REPLACEMENT MC SCH ×2 (08:00→19:37)
[2020-10-29 08:15] LABS: BASOPHILS % (AUTO) 0.2 % (0-1); EOSINOPHILS # (AUTO) 0.2 X10'3 (0-0.9); EOSINOPHILS % (AUTO) 1.2 % (0-6); HEMATOCRIT 46.4 % (42.0-52.0); HEMOGLOBIN 15.2 g/dl (14.0-17.9); LYMPHOCYTES # (AUTO) 2.4 X10'3 (1.1-4.8); LYMPHOCYTES % (AUTO) 19.4 % (21-51); MEAN CORPUSCULAR HEMOGLOBIN 31.3 PG (27.0-31.0); MEAN CORPUSCULAR HGB CONC 32.7 g/dL (33.0-36.5); MEAN CORPUSCULAR VOLUME 95.6 FL (78-98); MEAN PLATELET VOLUME 8.2 FL (7.4-10.4); MONOCYTES # (AUTO) 1.1 X10'3 (0-0.9); MONOCYTES % (AUTO) 9.2 % (2-12); NEUTROPHILS # (AUTO) 8.7 X10'3 (1.8-7.7); PLATELET COUNT 237 X10'3 (140-440); RED BLOOD COUNT 4.85 X10'6 (4.70-6.10); RED CELL DISTRIBUTION WIDTH 13.4 % (11.5-14.5); WHITE BLOOD COUNT 12.4 X10'3 (4.5-11.0)
[2020-10-29] MEDS: dexamethasone 4mg/ml inj IV SCH (08:17)
[2020-10-29] MEDS: enoxaparin 40mg/0.4ml syringe SQ SCH ×2 (08:18→19:44)
[2020-10-29] MEDS: docusate sod 100mg capsule PO SCH ×2 (08:18→19:44)
[2020-10-29 08:44] LABS: ALANINE AMINOTRANSFERASE 34 U/L (12-78); ALBUMIN/GLOBULIN RATIO 0.6 (1.1-1.5); ALKALINE PHOSPHATASE 83 IU/L (46-116); ANION GAP 9 (8-16); ASPARTATE AMINO TRANSFERASE 17 U/L (10-37); BILIRUBIN,TOTAL 0.4 MG/DL (0.1-1.0); BLOOD UREA NITROGEN 19 MG/DL (7-18); BUN/CREATININE RATIO 19.6 (5.4-32.0); C-REACTIVE PROTEIN 0.13 MG/DL (0.0-0.5); CHLORIDE 104 MMOL/L (99-107); CREATININE 0.97 MG/DL (0.60-1.10); GLUCOSE 74 MG/DL (70-104); POTASSIUM 3.9 MMOL/L (3.5-5.1); SODIUM 139 MMOL/L (135-145); TOTAL CARBON DIOXIDE 26.1 MMOL/L (24-32); TOTAL PROTEIN 5.5 G/DL (6.4-8.2); eGFR 77 ML/MIN
[2020-10-29 09:08] LABS: D-DIMER 0.75 MG/L FEU (0-0.50)
[2020-10-29 10:55] VITALS: BP 135/75
[2020-10-29 11:03] LABS: TOTAL CELLS COUNTED 100
[2020-10-29 11:04] LABS: PLATELET ESTIMATE NORMAL
[2020-10-29 14:00] VITALS: BP 139/88
[2020-10-29 18:00] VITALS: BP 135/75
--- NOTE | 2020-10-29 18:31 | NUR ---
Problems reprioritized. Patient report given, questions answered & plan of care reviewed with Vernell LUGO.
--- NOTE | 2020-10-29 18:45 | NUR ---
Patient in room ORTHO 4022. I have received report from PARISH Zarate and had the opportunity to ask questions and assume patient care.
--- NOTE | 2020-10-29 21:53 | NUR ---
Pt. walked with nursing 900f .He did very well .I checked his O2 after walking he was 91%.
[2020-10-29 22:00] VITALS: BP 123/92
[2020-10-30 02:00] VITALS: BP 118/98
--- NOTE | 2020-10-30 06:34 | NUR ---
Problems reprioritized. Patient report given, questions answered & plan of care reviewed with PARISH Hernandez.
--- NOTE | 2020-10-30 06:41 | NUR ---
Patient in room ORTHO 4022. I have received report from Vernell LUGO and had the opportunity to ask questions and assume patient care.
[2020-10-30 06:48] VITALS: BP 96/61
[2020-10-30] MEDS: K and/or MAG REPLACEMENT MC SCH ×2 (08:00→19:34)
[2020-10-30] MEDS: dexamethasone 4mg/ml inj IV SCH (08:35)
[2020-10-30] MEDS: docusate sod 100mg capsule PO SCH ×2 (08:35→19:36)
[2020-10-30] MEDS: enoxaparin 40mg/0.4ml syringe SQ SCH ×2 (08:36→19:37)
[2020-10-30 08:59] LABS: BASOPHILS % (AUTO) 0.2 % (0-1); EOSINOPHILS # (AUTO) 0.2 X10'3 (0-0.9); EOSINOPHILS % (AUTO) 1.4 % (0-6); HEMATOCRIT 49.7 % (42.0-52.0); HEMOGLOBIN 16.3 g/dl (14.0-17.9); LYMPHOCYTES # (AUTO) 2.5 X10'3 (1.1-4.8); LYMPHOCYTES % (AUTO) 18.9 % (21-51); MEAN CORPUSCULAR HEMOGLOBIN 31.1 PG (27.0-31.0); MEAN CORPUSCULAR HGB CONC 32.8 g/dL (33.0-36.5); MEAN CORPUSCULAR VOLUME 94.7 FL (78-98); MEAN PLATELET VOLUME 7.9 FL (7.4-10.4); MONOCYTES # (AUTO) 1.2 X10'3 (0-0.9); MONOCYTES % (AUTO) 8.7 % (2-12); NEUTROPHILS # (AUTO) 9.4 X10'3 (1.8-7.7); NEUTROPHILS % (AUTO) 70.8 % (42-75); PLATELET COUNT 256 X10'3 (140-440); RED BLOOD COUNT 5.25 X10'6 (4.70-6.10); RED CELL DISTRIBUTION WIDTH 13.5 % (11.5-14.5); WHITE BLOOD COUNT 13.3 X10'3 (4.5-11.0)
[2020-10-30 09:01] LABS: ALANINE AMINOTRANSFERASE 41 U/L (12-78); ALBUMIN 2.3 G/DL (3.4-5.0); ALBUMIN/GLOBULIN RATIO 0.6 (1.1-1.5); ALKALINE PHOSPHATASE 86 IU/L (46-116); ANION GAP 11 (8-16); ASPARTATE AMINO TRANSFERASE 14 U/L (10-37); BILIRUBIN,TOTAL 0.5 MG/DL (0.1-1.0); BLOOD UREA NITROGEN 20 MG/DL (7-18); BUN/CREATININE RATIO 24.4 (5.4-32.0); C-REACTIVE PROTEIN 0.76 MG/DL (0.0-0.5); CALCIUM 8.6 MG/DL (8.5-10.1); CHLORIDE 106 MMOL/L (99-107); CREATININE 0.82 MG/DL (0.60-1.10); GLUCOSE 80 MG/DL (70-104); POTASSIUM 3.8 MMOL/L (3.5-5.1); SODIUM 143 MMOL/L (135-145); TOTAL CARBON DIOXIDE 26.4 MMOL/L (24-32); TOTAL PROTEIN 6.4 G/DL (6.4-8.2); eGFR > 90 ML/MIN
[2020-10-30 09:02] LABS: D-DIMER 0.68 MG/L FEU (0-0.50)
[2020-10-30 11:08] VITALS: BP 107/65
[2020-10-30 14:54] VITALS: BP 113/67
[2020-10-30 18:00] VITALS: BP 114/79
--- NOTE | 2020-10-30 18:10 | NUR ---
Problems reprioritized. Patient report given, questions answered & plan of care reviewed with Vernell LUGO.
--- NOTE | 2020-10-30 18:23 | NUR ---
Patient in room ORTHO 4022. I have received report from PARISH Hernandez and had the opportunity to ask questions and assume patient care.
[2020-10-30 22:00] VITALS: BP 116/65
[2020-10-31 02:00] VITALS: BP 117/73
[2020-10-31 06:13] VITALS: BP 116/79
--- NOTE | 2020-10-31 06:16 | NUR ---
Problems reprioritized. Patient report given, questions answered & plan of care reviewed with PARISH Zarate.
[2020-10-31 07:50] LABS: BASOPHILS % (AUTO) 0.1 % (0-1); EOSINOPHILS # (AUTO) 0.2 X10'3 (0-0.9); EOSINOPHILS % (AUTO) 1.4 % (0-6); HEMATOCRIT 43.4 % (42.0-52.0); HEMOGLOBIN 14.6 g/dl (14.0-17.9); LYMPHOCYTES # (AUTO) 2.5 X10'3 (1.1-4.8); LYMPHOCYTES % (AUTO) 18.5 % (21-51); MEAN CORPUSCULAR HEMOGLOBIN 31.8 PG (27.0-31.0); MEAN CORPUSCULAR HGB CONC 33.7 g/dL (33.0-36.5); MEAN CORPUSCULAR VOLUME 94.2 FL (78-98); MEAN PLATELET VOLUME 7.6 FL (7.4-10.4); MONOCYTES # (AUTO) 1.1 X10'3 (0-0.9); MONOCYTES % (AUTO) 8.1 % (2-12); NEUTROPHILS # (AUTO) 9.6 X10'3 (1.8-7.7); NEUTROPHILS % (AUTO) 71.9 % (42-75); PLATELET COUNT 230 X10'3 (140-440); RED BLOOD COUNT 4.61 X10'6 (4.70-6.10); RED CELL DISTRIBUTION WIDTH 13.2 % (11.5-14.5); WHITE BLOOD COUNT 13.4 X10'3 (4.5-11.0)
[2020-10-31] MEDS: docusate sod 100mg capsule PO SCH (07:58)
[2020-10-31] MEDS: enoxaparin 40mg/0.4ml syringe SQ SCH (07:59)
[2020-10-31] MEDS: K and/or MAG REPLACEMENT MC SCH (08:00)
[2020-10-31] MEDS ORDERED: dexamethasone 4mg/ml inj IV SCH (08:00)
[2020-10-31 08:07] LABS: D-DIMER 0.55 MG/L FEU (0-0.50)
[2020-10-31 08:16] LABS: ALANINE AMINOTRANSFERASE 42 U/L (12-78); ALBUMIN 2.2 G/DL (3.4-5.0); ALBUMIN/GLOBULIN RATIO 0.6 (1.1-1.5); ALKALINE PHOSPHATASE 81 IU/L (46-116); ANION GAP 7 (8-16); ASPARTATE AMINO TRANSFERASE 14 U/L (10-37); BILIRUBIN,TOTAL 0.3 MG/DL (0.1-1.0); BLOOD UREA NITROGEN 20 MG/DL (7-18); C-REACTIVE PROTEIN 0.77 MG/DL (0.0-0.5); CALCIUM 8.2 MG/DL (8.5-10.1); CHLORIDE 104 MMOL/L (99-107); CREATININE 0.87 MG/DL (0.60-1.10); GLUCOSE 87 MG/DL (70-104); POTASSIUM 3.9 MMOL/L (3.5-5.1); SODIUM 137 MMOL/L (135-145); TOTAL CARBON DIOXIDE 25.8 MMOL/L (24-32); TOTAL PROTEIN 5.8 G/DL (6.4-8.2); eGFR 88 ML/MIN
[2020-10-31 09:37] VITALS: BP 118/74
--- NOTE | 2020-10-31 09:42 | NUR ---
O2 Sat at rest on room air:_88__% If below 89%: Recovery O2 Sat at rest on _4_LPM:_92__%:___% via nasal cannula (mask/nasal cannula, etc..) No further documentation is necessary. If O2 Sat did not drop below 89% on room air,ambulate patient on room air. O2 Sat while ambulating on room air:___% Recovery O2 Sat while ambulating on ___LPM:___% No further documentation is necessary. If patient does not drop below 89% while ambulating, he/she does not qualify for home O2.
[2020-10-31] MEDS ORDERED: APIX5TAB3 PO (12:23)
[2020-10-31] MEDS ORDERED: DEC4T PO (12:23)
[2020-10-31] MEDS ORDERED: ALBU6.7H9 IH (12:23)
[2020-10-31 15:15] VITALS: BP 113/90
--- NOTE | 2020-10-31 18:25 | NUR ---
Patient discharged to home via wheelchair, [facility] truck driver arranged to meet him at home with his concentrator and oxygen tanks. 20 gauge PIV removed from right hand, cannula intact no complications. Instructions given to patient, he verbalized understanding of all instructions given to him and the need for follow up.
== END 2020-10-31 18:22 | disposition home or self-care (01) | DRG 871 ==
LOC: ER 12:27 → ED HOLD 17:07 → COVID IP 10-19 07:45 → ORTHO 4S 10-21 17:05
PROVIDERS: ADMIT Family Medicine; ATTEND Family Medicine
PROC: XW033E5 Introduction of Remdesivir Anti-infective into Peripheral Vein, Percutaneous Approach, New Technology Group 5 (ICD-10-PCS; principal; 2020-10-18)
PROC: B32T1ZZ Computerized Tomography (CT Scan) of Left Pulmonary Artery using Low Osmolar Contrast (ICD-10-PCS; 2020-10-18)
PROC: B3201ZZ Computerized Tomography (CT Scan) of Thoracic Aorta using Low Osmolar Contrast (ICD-10-PCS; 2020-10-18)
PROC: B32S1ZZ Computerized Tomography (CT Scan) of Right Pulmonary Artery using Low Osmolar Contrast (ICD-10-PCS; 2020-10-18)
PROC: 5A0955A Assistance with Respiratory Ventilation, Greater than 96 Consecutive Hours, High Flow/Velocity Cannula (ICD-10-PCS; 2020-10-20)
PROC: 3E0234Z Introduction of Serum, Toxoid and Vaccine into Muscle, Percutaneous Approach (ICD-10-PCS; 2020-10-21)
DX: A41.9 Sepsis, unspecified organism (principal); U07.1 COVID-19; J96.01 Acute respiratory failure with hypoxia; J12.82 Pneumonia due to coronavirus disease 2019; E43 Unspecified severe protein-calorie malnutrition; D68.59 Other primary thrombophilia; I10 Essential (primary) hypertension; Z79.01 Long term (current) use of anticoagulants; Z87.891 Personal history of nicotine dependence; Z68.21 Body mass index [BMI] 21.0-21.9, adult; Z23 Encounter for immunization
CPT/HCPCS: 36415; 36600; 71045; 71275; 80048; 80053; 81001; 82803; 83605; 83735; 84145; 85007; 85018; 85025; 85379; 86140; 87040; 87081; 87635; 90732; 93005; 94760; 96372; 96374; 97110; 97116; 97161; 97530; 99285; G0378; J0360; J1100; J1650; J7030; Q9967